=== PATIENT | male | born 1980 | race African-American/Black ===

== ENCOUNTER 2017-03-04 14:34 | Emergency (ER) | payer OTHER ==
[~2017-03-04] VITALS: Ht 185.4 cm; Wt 101.3 kg
[2017-03-04 14:58] VITALS: BP 104/66
== END 2017-03-04 15:28 | disposition home or self-care (01) ==
LOC: ED 15:00
DX: S51.811D Laceration without foreign body of right forearm, subsequent encounter (principal); X58.XXXD Exposure to other specified factors, subsequent encounter
CPT/HCPCS: 99282

== ENCOUNTER 2019-09-20 13:55 | Emergency (ER) | payer OTHER ==
[~2019-09-20] VITALS: Ht 185.4 cm; Wt 105.7 kg
[2019-09-20 14:05] VITALS: BP 131/65
--- NOTE | 2019-09-20 14:27 | NUR ---
report to leann coffman. as
== END 2019-09-20 15:24 | disposition home or self-care (01) ==
LOC: ED 15:15
DX: S00.93XA Contusion of unspecified part of head, initial encounter (principal); W19.XXXA Unspecified fall, initial encounter; Y93.89 Activity, other specified; Y92.69 Other specified industrial and construction area as the place of occurrence of the external cause; Y99.0 Civilian activity done for income or pay
CPT/HCPCS: 99282